=== PATIENT | male | born 1935 | race Caucasian/White ===

== ENCOUNTER → 2022-05-20 | Outpatient (CLI) | payer MEDICARE, MEDICAID, SELFPAY ==
--- NOTE | 2022-05-20 07:55 | VDLE_ITS ---
Reason For Study: Swelling RIGHT LEFT GSV is normal. CFV is compressible, spontaneous, phasic, CFV is compressible, spontaneous, phasic, competent, and demonstrates normal competent and demonstrates normal augmentation. augmentation. FV is compressible, spontaneous, phasic, FV is compressible, spontaneous, phasic, competent and demonstrates normal competent and demonstrates normal augmentation. augmentation. POP V is compressible, spontaneous, phasic, POP V is compressible, spontaneous, phasic, competent and demonstrates normal competent and demonstrates normal augmentation. augmentation. T/P Trunk is compressible. T/P Trunk is compressible. PTV is compressible. PTV is compressible. LT PerV is compressible. RT PerV is compressible. SFJ is competent and measures 0.27cm x 0.31 SFJ is competent and measures 0.46cm x 0.59 cm. cm. Lt GSV in the thigh is not visualized s/p GSV proximal thigh measures 0.36cm x 0.38 EVLA/stripping. cm. GSV below knee is INCOMPETENT for greater GSV at knee measures 0.37cm x 0.43 cm. than 0.5 seconds. GSV is competent throughout. SSV proximal calf is INCOMPETENT for greater SSV proximal calf is competent and measures than 0.5 seconds and measures 0.33cm x 0.33 0.33cm x 0.36 cm. cm. Procedure This is a venous duplex using B-mode, color flow and spectral Doppler. Exam performed in department. A preliminary report was called and/or faxed to [facility]. VL/Venous Duplex US - Ulises Extrem Interpretation Summary Deep veins of the bilateral lower extremities are patent and compressible segme ntally. There is no evidence of bilateral lower extremity deep vein thrombosis. The bilateral great saphenous veins appear patent and compressible segmentally. Positive for reflux in the left great saphenous below knee and small saphenous veins. Prior ablation/stripping of leg thigh great saphenous Ordering Physician: Mahnaz Rahman Referring Physician: Renee Horn Performed By: Elsy Masterson, ROSE, RVT
--- NOTE | 2022-05-20 07:55 | ART_ITS ---
Reason For Study: Ulcer Procedure A bilateral lower extremity continuous wave Doppler with analog waveform analysis,segmental pressures,and ankle brachial indexes without exercise. Left Segmental Pressures Left brachial= 130mmHg. Left thigh = 175mmHg. Left calf = 190mmHg. Left posterior tibial artery = 116mmHg. Left dorsalis pedis artery = 128mmHg. Right Segmental Pressures Right brachial= 128mmHg. Right posterior tibial artery = 142mmHg. Right dorsalis pedis artery = 133mmHg. Right digit = 112 mmHg. Indices The right ankle brachial index by the posterior tibial artery is 1.09. The right ankle brachial index by the dorsalis pedis is 1.02. The right digital-brachial index is 0.86. The left ankle brachial index by the posterior tibial artery is 0.89. The left ankle brachial index by the dorsalis pedis is 0.98. VL/Lower Ext Art Exam w/o Exercis Interpretation Summary Right PRIYANKA 1.09, normal. TBI and Doppler/PVR waveforms of the right leg normal a t rest. Left PRIYANKA 0.98, mild arterial insufficiency. Doppler/PVR waveforms and segmental pressures reveal infrapopliteal disease. Ordering Physician: Mahnaz Rahman Referring Physician: Renee Horn Performed By: Elsy Masterson RDCS/RVT
== END | disposition home or self-care (01) ==
LOC: CVS 07:54
PROVIDERS: PCP Internal Medicine Infectious Disease; Visit Provider Physician Assistant
DX: I73.9 Peripheral vascular disease, unspecified (principal); L97.529 Non-pressure chronic ulcer of other part of left foot with unspecified severity; M79.89 Other specified soft tissue disorders
CPT/HCPCS: 93923; 93970